=== PATIENT | male | born 1940 ===

== ENCOUNTER 2017-05-01 07:17 | Day surgery (SDC) | payer MEDICARE ==
[2017-04-23 12:50] VITALS: BMI 36.0
[2017-05-01] MEDS ORDERED: Propofol 10 mg/ml Inj (20 ML) ONE (09:09)
[2017-05-01] MEDS ORDERED: Midazolam 2 MG/2 ML VIAL ONE (09:10)
[2017-05-01] MEDS ORDERED: Sodium Chloride 0.9% 1,000 ML IV SCH (09:45)
[2017-05-01 10:37] VITALS: O2SAT 95
[2017-05-01 13:01] VITALS: BP 153/59; PULSE 50; RESP 14; TEMP 98
== END 2017-05-01 12:15 | disposition home or self-care (01) ==
LOC: ENDO 07:17
PROVIDERS: ATTEND Internal Medicine
DX: D12.4 Benign neoplasm of descending colon (principal); D12.5 Benign neoplasm of sigmoid colon; K57.30 Diverticulosis of large intestine without perforation or abscess without bleeding; K64.8 Other hemorrhoids; I10 Essential (primary) hypertension
CPT/HCPCS: 45380; 88305; J2250; J2704; J7040 ×2